=== PATIENT | female | born 1995 | race Caucasian/White ===

== ENCOUNTER 2018-09-19 12:39 | Emergency (ER) | payer SELFPAY ==
[~2018-09-19] VITALS: Ht 157.5 cm; Wt 81.6 kg
--- NOTE | 2018-09-19 13:37 | NUR ---
PATIENT WAS SEEN BY MD. XRAYS COMPLETE. VARGAS WRAP APPLIED TO ANKLE PER MD INSTRUCTION. DC, RX AND FOLLOW UP INSTRUCTIONS GIVEN AND EXPLAINED TO PATIENT WHO STATES SHE UNDERSTANDS ALL INSTRUCTIONS
== END 2018-09-19 13:45 | disposition home or self-care (01) ==
LOC: ER 12:39
DX: S93.402A Sprain of unspecified ligament of left ankle, initial encounter (principal); Z88.6 Allergy status to analgesic agent; X50.1XXA Overexertion from prolonged static or awkward postures, initial encounter; Y93.89 Activity, other specified; Y92.89 Other specified places as the place of occurrence of the external cause; Y99.8 Other external cause status
CPT/HCPCS: 73610; A4663

== ENCOUNTER 2019-08-21 09:55 | Emergency (ER) | payer MEDICAID, OTHER ==
[~2019-08-21] VITALS: Ht 157.5 cm; Wt 81.6 kg
[2019-08-21] MEDS ORDERED: DIPH25CA83 PO (09:59)
--- NOTE | 2019-08-21 10:04 | NUR ---
Patient discharged to home in stable conditon. Written and verbal after care instructions given. Patient verbalizes understanding of instructions.
[2019-08-21] MEDS ORDERED: predniSONE 20 MG TABLET PO ONE (10:15)
[2019-08-21] MEDS ORDERED: FAMOTIDINE 20 MG TABLET PO ONE (10:15)
== END 2019-08-21 10:09 | disposition home or self-care (01) ==
LOC: ER 09:55
DX: L50.9 Urticaria, unspecified (principal); Z88.6 Allergy status to analgesic agent; Z79.899 Other long term (current) drug therapy
CPT/HCPCS: A4663

== ENCOUNTER 2020-07-12 21:05 | Emergency (ER) | payer OTHER ==
[~2020-07-12] VITALS: Ht 157.5 cm; Wt 77.1 kg
[~2020-07-12 21:05] MED LIST: DIPH25CA83 PO
[2020-07-12] MEDS ORDERED: ONDANSETRON ODT 4 MG TAB.RAPDIS ONE (21:27)
[2020-07-12] MEDS ORDERED: HYDROCODONE/APAP 10-325 MG TABLET ONE (21:28)
[2020-07-12] MEDS ORDERED: ONDANSETRON ODT 4 MG TAB.RAPDIS SL ONE (21:30)
[2020-07-12] MEDS ORDERED: HYDROCODONE/APAP 10-325 MG TABLET PO ONE (21:30)
--- NOTE | 2020-07-12 21:31 | NUR ---
Patient discharged to home in stable condition. Written and verbal after care instructions given. Patient verbalizes understanding of instructions. Stressed follow up or return to ER for worsening s/s. All belongings gvien to patient, patient was able to ambulate with stable gait. Patient instructed that she cannot drive with medications administered. Patient stated, "I had someone drop me off, and they will be picking me up to take me home.".
[2020-07-12 21:35] VITALS: BP 128/79
== END 2020-07-12 21:35 | disposition home or self-care (01) ==
LOC: ER 21:07
DX: H60.91 Unspecified otitis externa, right ear (principal)
CPT/HCPCS: A4663; Q0162